=== PATIENT | female | born 1955 | race Caucasian/White ===

== ENCOUNTER → 2019-04-11 | Outpatient (CLI) | payer MEDICARE ==
--- NOTE | 2019-04-11 19:08 | REP ---
Left elbow for views : There is no fracture or dislocation. Mineralization and joint spaces are normal. There are no calcifications or foreign bodies. There are calcifications adjacent to the medial and lateral humeral condyles, likely accessory ossicles. Impression: Negative left elbow . Electronically Signed by Jovani Elder MD 04/11/2019 07:00 P
--- NOTE | 2019-04-11 19:08 | REP ---
Left forearm two views : There is no fracture or dislocation. Mineralization and joint spaces are normal. There are no calcifications or foreign bodies. Impression: Negative left forearm . Electronically Signed by Jovani Elder MD 04/11/2019 07:00 P
--- NOTE | 2019-04-11 19:09 | REP ---
Left wrist four views : There is no fracture or dislocation. Mineralization and joint spaces are normal. There are no calcifications or foreign bodies. Impression: Negative left wrist . Electronically Signed by Jovani Elder MD 04/11/2019 07:01 P
--- NOTE | 2019-04-11 19:10 | REP ---
Left hand four views : There is no fracture or dislocation. Mineralization and joint spaces are normal. There are no calcifications or foreign bodies. Impression: Negative left hand . Electronically Signed by Jovani Elder MD 04/11/2019 07:02 P
== END ==
LOC: M LRY 18:14
PROVIDERS: ATTEND Nurse Practitioner Family
DX: S59.912A Unspecified injury of left forearm, initial encounter (principal); W05.1XXA Fall from non-moving nonmotorized scooter, initial encounter; Y92.9 Unspecified place or not applicable